=== PATIENT | male | born 1970 | race Caucasian/White ===

== ENCOUNTER 2018-09-03 13:35 | Emergency (ER) | payer OTHER ==
[~2018-09-03] VITALS: Ht 172.7 cm; Wt 85.0 kg
[2018-09-03] MEDS ORDERED: ONDANSETRON HCL 4MG/2ML INJ IV ONE (14:30)
[2018-09-03] MEDS ORDERED: MORPHINE SULFATE 10 MG/ML CPJ IV ONE (14:30)
[2018-09-03] MEDS ORDERED: KETOROLAC 30MG/ML VIAL IV ONE (17:15)
[2018-09-03] MEDS ORDERED: HYDROMORPHONE HCL/PF 2MG/ML CPJ IV ONE (18:30)
[2018-09-03 18:59] LABS: BASOPHILS % 0.6 % (0.0-2.0); EOSINOPHILS % 0.1 % (0.0-5.0); HEMATOCRIT. 42.7 % (42.0-52.0); HEMOGLOBIN. 14.5 g/dL (14.0-18.0); LYMPHOCYTES % 10.9 % (20.0-50.0); MEAN CORPUSCULAR HEMOGLOBIN 29.5 pg (28.0-32.0); MEAN CORPUSCULAR VOLUME 86.8 fL (80.0-94.0); MEAN PLATELET VOLUME 8.1 fl (7.4-10.4); MONOCYTES % 4.3 % (2.0-8.0); NEUTROPHILS % 84.1 % (40.0-76.0); PLATELET 235 x1000/uL (130-400); RED BLOOD CELL COUNT 4.91 mill/uL (4.7-6.1)
[2018-09-03 19:03] LABS: CHLORIDE 103 mEq/L (98-107)
[2018-09-03 20:16] VITALS: BP 109/74
== END 2018-09-03 20:48 | disposition short-term general hospital (02) ==
LOC: ER 13:35
DX: S42.201A Unspecified fracture of upper end of right humerus, initial encounter for closed fracture (principal); M79.18 Myalgia, other site; W11.XXXA Fall on and from ladder, initial encounter; Y93.9 Activity, unspecified; Y92.9 Unspecified place or not applicable
CPT/HCPCS: 36415; 71111; 72125; 72170; 73030; 73060; 73070; 73110; 80048; 85025; 96374; 96375; 99285; J1170; J1885; J2270; J2405; Z7610; A4565